=== PATIENT | female | born 1960 | race Caucasian/White ===

== ENCOUNTER → 2017-01-20 | Day surgery (SDC) | payer OTHER ==
[~2017-01-20] VITALS: Ht 160 cm; Wt 51.1 kg
[~2017-01-20] MED LIST: NORCO 5-325 TA1 EACH PO; OCUVITE SOFTGE1 EACH PO
--- NOTE | ~2017-01-20 | OR ---
PATIENT'S NAME: CHLOE MOSS [facility] AGE: 56 Y [address] ROOM: [place] [address] LOCATION: GO ADMIT DATE: 01/20/2017 OR/Procedure Report DISCHARGE DATE: FAMILY PHYSICIAN: Noe Bradley MD ATTENDING PHYSICIAN: Rocco Caicedo SURGEON: Rocco Caicedo MD OYSTER UNLOADER: DATE OF PROCEDURE: 01/20/2017 REFERRING PHYSICIAN: Noe Bradley MD PREOPERATIVE DIAGNOSIS: Right breast cancer. POSTOPERATIVE DIAGNOSIS: Right breast cancer. PROCEDURES PERFORMED: 1. Right breast partial mastectomy. 2. Right axillary sentinel lymph node biopsy followed by axillary dissection. 3. Injection of blue dye. FINDINGS: The sentinel node was very prominent. There were three nodes matted together, 1 with obvious metastasis. With the positive lymph nodes as well as several other very hard lymph nodes within the axilla in a likelihood of more than 4 positive nodes, we completed an axillary dissection. INDICATIONS FOR PROCEDURE: The patient is a 56-year-old female, who presented with a right breast lump. This was biopsied and found to be an invasive cancer. We discussed options with the patient of partial mastectomy, sentinel node as well as indications for axillary dissection. She understood the risks and elected to proceed. DESCRIPTION OF PROCEDURE: The patient was taken to the operating room. She was supine, given IV sedation, and subsequently intubated. Preoperatively, she had been injected by Nuclear Medicine with technetium. We subsequently injected 5 mL of dilute methylene blue in the subareolar region after she was asleep. Her breast, axilla, and arm were all prepped with ChloraPrep and sterilely draped. The right axilla was attended to first. Using the Neoprobe for guidance, we made an incision in the axilla, carried this into the subcutaneous tissues. The sentinel node was identified. This had counts of 2100. There was node immediately adjacent to the sentinel node that was large, hard, and had obvious tumor present within it. The hard node had zero counts, the node next to it had 2100 counts. These initially were taken out and placed in formalin. Because of this, we did not perform a frozen section. However, on further inspection of the axilla, although there were not high PATIENT'S NAME: CHLOE MOSS [facility] AGE: 56 Y [address] ROOM: [place] [address] LOCATION: [facility] ADMIT DATE: 01/20/2017 OR/Procedure Report DISCHARGE DATE: FAMILY PHYSICIAN: Noe Bradley MD ATTENDING PHYSICIAN: Rocco Caicedo counts, there were several hard lymph nodes concerning for malignancy. Two of these nodes were removed and sent for frozen section. One of the two was positive for metastatic disease. Knowing this, we had a very high likelihood of having at least 3 or 4 positive lymph nodes as there were several others palpable in the axilla through our incision. Because of this, we chose to complete an axillary dissection. Our incision was then increased in size, the pectoralis major muscle was identified as well as the axillary vein. The investing fascia was incised using the Harmonic scalpel. We dissected down to the thoracodorsal and long thoracic nerves. These were both identified and preserved. A level 1 and 2 dissections were performed. Axillary contents were sent for permanent sections. The operative field was then inspected. No other nodes were palpable or visible. A 15-Hungarian round drain was placed through a separate stab incision. The operative field was inspected. It appeared hemostatic. The nerves again were identified and were preserved. The deep dermal layers were approximated with 3-0 Vicryl suture and skin closure with 4-0 Monocryl suture. Following this, the lumpectomy was attended to. A transverse incision was created overlying the palpable mass. This was dissected around circumferentially using electrocautery. Once removed, it was marked for orientation and sent as specimen. The operative field was inspected. No other gross tumor was present. It was hemostatic. Deep dermal layers were approximated with 3-0 Vicryl suture and skin closed with 4-0 Monocryl suture. The drain was to bulb suction. Sterile dressings were placed. She was extubated and sent to recovery in good condition. MD JALEESA AGUILARO/branl /[id number] d: 01/20/[id number] t: 01/27/17 112, OPERATIVE SUMMARY
== END | disposition disaster alternative care site (69) ==
LOC: GOPD 01-18 → GOPP 06:54
PROC: 0HBT0ZZ Excision of Right Breast, Open Approach (ICD-10-PCS; principal; 2017-01-20)
PROC: 07B50ZZ Excision of Right Axillary Lymphatic, Open Approach (ICD-10-PCS; 2017-01-20)
DX: C50.911 Malignant neoplasm of unspecified site of right female breast (principal); C77.3 Secondary and unspecified malignant neoplasm of axilla and upper limb lymph nodes; F17.210 Nicotine dependence, cigarettes, uncomplicated; Z98.890 Other specified postprocedural states
CPT/HCPCS: A9520; J0690; J1100; J1885; J2250; J2405; J3010; J7120; Q9968

== ENCOUNTER → 2017-02-10 | Outpatient (CLI) | payer OTHER ==
--- NOTE | ~2017-02-10 | ECHO ---
Transthoracic Echocardiography Report (TTE) Demographics Patient Name CHLOE MOSS Date of Study 02/10/2017 Patient Number [id number] Visit Number [id number] Date of 1960 Room Number Gender Female Number Age 56 year(s) Referring Kirk Polanco Social Work Specialist Jamila Zheng RVT, Physician [facility] Phys[facility] Interpreting Nichole Maxwell Third Loader Physician Supervising Ordering Narda Padilla MD, MD/P Physician Nurse Stress Benzene Still Utility Operator Conclusions Contractility Score Summary Normal Left Ventricular contractility was noted. Summary Limited echo for ejection fraction. The estimated left ventricular ejection fraction is 60-65% with normal internal dimension, wall thickness, and wall motion. Procedure Type of Study TTE procedure:Echo Limited w/o Contrast. Procedure Date Date: 02/10/2017 Start: 11:46 AM Study Location: Echo Lab Technical Quality: Excellent Indications:High Risk Medication Use. Appropriate Use Criteria: 8 Patient Status: Routine Rhythm: NSR HR: 81 bpm BP: 133/89 mmHg M-Mode/2D Measurements AV Cusp Separation: 2 cm EF Estimated: 60 % LVOT: 1.7 cm Findings Left Ventricle Normal left ventricle size and function. Right Ventricle Normal right ventricle structure and function. Left Atrium Normal left atrial size. Right Atrium Normal right atrial size. Pericardial Effusion No evidence of pericardial effusion. Miscellaneous Visualized portions of the aortic root and ascending aorta appear normal in size. Pleural Effusion No evidence of pleural effusion. Contractility Score LV regional wall motion:(0-Non visualized 1-Normal 2-Hypokinesis 3-Akinesis 4-Dyskinesis 5-Aneurysm) Signature dtt: Alissa Varela dtd: 02/10/17 1146 Physician Self Edit
== END | disposition disaster alternative care site (69) ==
LOC: GCAR 11:40
DX: Z51.81 Encounter for therapeutic drug level monitoring (principal); C50.511 Malignant neoplasm of lower-outer quadrant of right female breast; Z79.899 Other long term (current) drug therapy

== ENCOUNTER → 2017-02-15 | Outpatient (CLI) | payer OTHER | END | disposition disaster alternative care site (69) | LOC: GRAD 10:53 | DX: C50.511 Malignant neoplasm of lower-outer quadrant of right female breast (principal) | CPT/HCPCS: A9503; Q9967 ==